=== PATIENT | female | born 1975 | race Caucasian/White ===

== ENCOUNTER 2021-07-30 07:03 | Day surgery (SDC) | payer BC ==
[~2021-07-30 07:03] MED LIST: BUPIVACAINE 0.5% VIAL IJ ONE; Lactated Ringers 1,000 ML IV ONE; XYLOCAINE 1% HCL 20 ML MDV ONE
[2021-07-30] MEDS ORDERED: Lactated Ringers 1,000 ML IV ONE ×2 (07:28→11:31)
[2021-07-30] MEDS ORDERED: CEFAZOLIN 2 GM-D5W BAG** 2 GM/50 ML ML IV ONE (07:28)
[2021-07-30] MEDS ORDERED: CEFAZOLIN 2 GM-D5W BAG** 2 GM/50 ML ML IV SCH (07:30)
[2021-07-30] MEDS ORDERED: Lactated Ringers 1,000 ML IV SCH (07:30)
[2021-07-30 07:50] VITALS: O2SAT 99
[2021-07-30 08:17] LABS: ANION GAP 9.9 MEQ/L (5-15); BLOOD UREA NITROGEN 18 mg/dL (7-17); CHLORIDE 105 mmol/L (98-107); Calcium 8.5 mg/dL (8.4-10.2); Carbon Dioxide 28 mmol/L (22-30); Creatinine 1 1.01 mg/dL (0.52-1.04); EST GLOMERULAR FILTRATION RATE > 60.0 ML/MIN; Glucose 99 mg/dL (74-106); Potassium 4.1 mmol/L (3.5-5.1); SODIUM 138 mmol/L (137-145)
[2021-07-30] MEDS ORDERED: Decadron 4 MG INJ ONE (09:01)
[2021-07-30] MEDS ORDERED: Xylocaine-Mpf 2% 5 Ml Vial ONE (09:01)
[2021-07-30] MEDS ORDERED: Zofran 4 MG/2 ML VIAL ONE (09:01)
[2021-07-30] MEDS ORDERED: Zemuron 100 MG/10 ML ONE (09:01)
[2021-07-30] MEDS ORDERED: DIPRIVAN 200 MG/20 ML IV ONE (09:01)
[2021-07-30] MEDS ORDERED: BRIDION 200MG/2ML IV ONE (09:01)
[2021-07-30] MEDS ORDERED: TORAdol 30 mg Injection ONE (09:01)
[2021-07-30] MEDS ORDERED: SUBLIMAZE 100 MCG/2 ML ONE ×2 (09:01→11:08)
[2021-07-30] MEDS ORDERED: Ephedrine Sulfate 50 MG/ML ONE (09:17)
[2021-07-30] MEDS ORDERED: PHENYLEPHRINE HCL ONE (09:29)
[2021-07-30] MEDS ORDERED: Ketamine HCl 50 MG/ML ONE (11:01)
[2021-07-30] MEDS ORDERED: NORCO 5/325 MG PO PRN (12:52)
[2021-07-30] MEDS ORDERED: NORCO 5/325 MG ONE (12:56)
[2021-07-30 14:07] VITALS: BP 118/73; PULSE 94
--- NOTE | 2021-08-02 09:37 | OP ---
SURGERY DATE/TIME: 07/30/2021 0902 PREOPERATIVE DIAGNOSES: 1) Compression neuropathy common peroneal nerve, right. 2) Common peroneal nerve, tibial nerve, right. 3) Common compression neuropathy deep peroneal nerve, right. 4) Compression neuropathy medial plantar nerve, right. 5) Compression neuropathy lateral plantar nerve right and compression neuropathy of medial calcaneal nerve, right. 6) Compression neuropathy superficial peroneal nerve right leg. POSTOPERATIVE DIAGNOSES: 1) Compression neuropathy common peroneal nerve, right. 2) Common peroneal nerve, tibial nerve, right. 3) Common compression neuropathy deep peroneal nerve, right. 4) Compression neuropathy medial plantar nerve, right. 5) Compression neuropathy lateral plantar nerve right and compression neuropathy of medial calcaneal nerve, right. PROCEDURES: 1) Decompression of common peroneal nerve right leg. 2) Decompression of tarsal tunnel right leg. 3) Decompression of deep peroneal nerve right foot. 4) Decompression of medial plantar nerve right foot. 5) Decompression of lateral plantar nerve right foot. 6) Decompression of medial calcaneal nerve right foot. 7) Decompression of superficial peroneal nerve right leg. SURGEON: Naresh Mayen DPM. MATERIAL HANDLER FLOORPERSON: None. ANESTHESIA: General. ANTIBIOTICS: 2 gm Ancef. HEMOSTASIS: Thigh tourniquet set to 350 mm of Mercury for 80 total tourniquet minutes. INJECTABLES: Postoperative block of the skin was provided. See injectables for details. MATERIALS: 4-0 Monocryl and 3-0 Nylon. FINDINGS: Multiple sites of compression specifically of the common peroneal and the tarsal tunnel. However, fascial restriction at the superficial and deep peroneal nerve. COMPLICATIONS: None. INDICATION FOR SURGERY: Camelia is a very pleasant 46-year-old female known very well to my service. 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 The patient was tested and clinically does not show signs of residual neuroma however has developed compression neuropathy specifically of the tarsal tunnel that is exquisitely tender and symptomatic to this extremity. An EMG was performed demonstrating that she has multiple nerve compressions of the lower extremity with no relationship to her lower back. The compression neuropathy appears to be occurring at the common peroneal, deep peroneal, superficial peroneal as well as within the tarsal tunnel. The patient has no history of trauma to this area. However, she does have positive Tinel's sign in all the nerve distributions with an appropriate response and dermatomal neurological sensation to this distribution as well as a positive scratch collapse to the common peroneal with dorsiflexed restraint of the foot. The patient delayed surgical intervention for some time and indicated that the time prior to surgical intervention that symptoms have worsened since our last visit. At this time the patient is willing to proceed in regards to continue to perform surgical intervention and be aggressive to decompress all of the nerves as she states she wants this to be her last surgical intervention for this issue. The patient understands all risks, complications and benefits of surgical intervention at this time including but not limited to infection, hematoma, seroma, possibility of delayed wound, healing or nonwound healing and possibility of need for repeat surgical intervention if a serious complication were to occur. Plenty of time was allowed for the patient to ask questions and they were answered to the patient's apparent satisfaction. No guarantees were provided as to the outcome and success rates were discussed at chair side and prior to entering the OR. The patient is in agreement with this and wishes to proceed. DESCRIPTION OF PROCEDURE AND FINDINGS: Following satisfactory preoperative evaluation, the patient was placed on the OR table in the lateral position. General anesthesia was then administered by the anesthesia team. A well-padded pneumatic tourniquet was placed around the patient's right thigh and the tourniquet was set to 350 mm of Mercury. The right foot and the lower extremity were pressed and draped the site of the tourniquet and lowered onto the surgical field. An Esmarch was utilized to exsanguinate the leg and the tourniquet was then inflated. Attention was then directed to the lateral proximal head of the right fibula where an oblique incision was made approximately 4 cm in line with the common peroneal nerve. Dissection was then carried down through the subcutaneous tissue taking care to identify all of the neurovascular structures and carefully transect and releasing the nerve to the peroneal muscle sheath where the common peroneal nerve travels beneath the muscle. Additionally, the nerve was followed proximally to a compression at the lateral head of the gastrocnemius muscle. The fascia of the lateral head of the gastrocnemius muscle was then released and a good release was noted at this level. It should be noted that the fascial layer was extraordinarily tight over the common peroneal nerve at this layer likely the compression source of the patient's symptoms. The fascia of the peroneal muscle was then transected and the muscle was then carefully retracted and the deep fascia layer overlying the common peroneal nerve was released. The area was then flushed with copious amounts of sterile saline. Subcutaneous layer was then re-approximated utilizing 4-0 Monocryl and 3-0 Nylon was utilized to coapt the skin in horizontal mattress-type fashion. At this time attention was then directed to the dorsal aspect of the first intermetatarsal space where approximately a 3 cm oblique incision was created in line with the extensor hallucis brevis tendon. The incision was then carefully deepened through the subcutaneous tissue. The extensor hallucis brevis was then identified and transected using bipolar cautery on the nerve and then was identified running along with the deep peroneal artery restricting subcutaneous structures were then released from the soft tissue attachments proximally and distally. Deep peroneal nerve was noted to be freed from its attachments. The skin was then coapted utilizing 4-0 Monocryl and 3-0 Nylon in a horizontal mattress-type fashion. Attention then was directed to the posterior aspect of the right medial malleolus where a 4.5 cm longitudinal incision was made through the skin utilizing a 15 blade. The incision was carefully deepened through the subcutaneous tissue being careful not to damage any neurovascular structures along the leg. A second incision was then created long the adductor hallucis muscle belly. A 4 cm incision with its proximal incision starting at the distal end of the previous incision however leaving a 2 cm skin bridge for comfort of the patient in the healing process and to allow for the range of motion. The adductor hallucis muscle belly was then carefully reflected away from the tibial nerve and its fascia. We then released. The medial and lateral plantar tunnels were identified bluntly with a [place] elevator and T-shaped fasciotomy was created into the adductor hallucis muscle. The medial calcaneal nerve was then identified and freed from any subcutaneous issue and carefully freed from its subcutaneous constricture. The nerves at the medial and lateral portals were then identified via blunt and sharp dissection and the nerve tunnels were then cauterized via bipolar cautery. The septum between the medial and lateral plantar nerves was removed and the tunnel was tested for adequate release of the constricture. At this time the decompression of the medial and lateral plantar nerves and medial calcaneal nerve as well as tibial nerve were noted to be complete at this time. The area was flushed with sterile saline. Subcutaneous tissue was re-approximated utilizing 4-0 Monocryl and coapted utilizing 3-0 Nylon. At this time the anterior aspect of the leg was palpated approximately 10 cm from the ankle joint in an area just medial to the fibula. An incision was made quickly identifying the superficial peroneal nerve just below the sural fascia and exiting the pleural fascia at this layer. This was decompressed utilizing a blunt and sharp dissection being careful not to damage any neurovascular structures along the way. The fascial layer appeared to be extraordinarily in this area likely the resulting constricture in this area. Once again this area was flushed and closed with 4-0 Monocryl subcutaneously and 3-0 Nylon in a horizontal mattress-type fashion for the skin. A postoperative injection was given of 0.5% Marcaine plain and 1% lidocaine plain over the superficial skin being careful not to inject near the nerves. A total of 30 cc of 1:1 mixture was utilized for all incision sites. Following the procedure, the dorsalis pedis and posterior tibial pulses were noted with immediate capillary refill time to all digits. Dressing consisting of Betadine soaked Adaptic, 4x4, Kerlix followed by compressive leg roll, LAILA wrap was applied to the patient's right foot and lower extremity. The patient was then reversed from anesthesia and returned to the postoperative anesthesia care unit with vital signs stable and vascular status intact. The patient handled the procedure without significant complication. Postoperative orders as indicated in the patient's discharge chart.
== END 2021-07-30 13:15 | disposition home or self-care (01) ==
LOC: SDC 07:03
PROVIDERS: ATTEND Podiatrist Foot & Ankle Surgery
DX: G57.61 Lesion of plantar nerve, right lower limb (principal); G57.91 Unspecified mononeuropathy of right lower limb; M79.671 Pain in right foot
CPT/HCPCS: 28035; 36415; 64704; 64708; 80048; 81025; J0690; J1100; J1885; J2370; J2405; J2704; J3010; A9270-GY